=== PATIENT | male | born 1985 | race Caucasian/White ===

== ENCOUNTER 2018-06-04 12:22 | Outpatient (REF) | payer BC, SELFPAY ==
[2018-06-04 19:30] LABS: Cholesterol 191 mg/dL (50-200); HDL Cholesterol 32 mg/dL (40-60); LDL CHOLESTEROL 150 mg/dL (<100); Triglyceride 89 mg/dL (30-150)
== END 2018-06-04 12:23 ==
LOC: NCHCN 12:22
PROVIDERS: PCP Physician Assistant Medical; Visit Provider Physician Assistant Medical
DX: Z00.00 Encounter for general adult medical examination without abnormal findings (principal); Z13.220 Encounter for screening for lipoid disorders
CPT/HCPCS: 80061; 83721

== ENCOUNTER 2019-07-02 10:50 | Outpatient (REF) | payer BC, SELFPAY ==
[2019-07-02 18:56] LABS: Anion Gap 7.9 mmol/L (3-11); BUN 10 mg/dL (7-18); CO2 27.1 mmol/L (21.0-32.0); CREATININE 0.87 mg/dL (0.70-1.30); Calcium 8.8 mg/dL (8.5-10.1); Chloride 103 mmol/L (98-107); Glucose 98 mg/dL (70-100); Potassium 4.5 mmol/L (3.5-5.1); Sodium 138 mmol/L (136-145)
== END 2019-07-02 11:10 ==
LOC: NCHCN 10:50
PROVIDERS: PCP Nurse Practitioner Family; Visit Provider Nurse Practitioner Family
DX: M54.89 Other dorsalgia (principal)
CPT/HCPCS: 80048; 87086

== ENCOUNTER 2020-07-16 14:48 | Outpatient (REF) | payer SELFPAY ==
[2020-07-20 17:07] LABS: Patient Race White; SARS-CoV-2 RNA Undetected (Undetected); SARS-CoV-2 Specimen Source Nasopharynx
== END 2020-07-16 15:08 ==
LOC: NCHCN 14:48
PROVIDERS: PCP Nurse Practitioner Family; Visit Provider Physician Assistant
DX: Z20.828 Contact with and (suspected) exposure to other viral communicable diseases (principal)
CPT/HCPCS: U0003

== ENCOUNTER 2020-09-04 14:18 | Outpatient (REF) | payer OTHER, SELFPAY ==
[2020-09-09 02:01] LABS: Patient Race White; SARS-CoV-2 RNA Undetected (Undetected); SARS-CoV-2 Specimen Source Nasal
== END 2020-09-04 14:38 ==
LOC: NCHCN 14:18
PROVIDERS: PCP Nurse Practitioner Family; Visit Provider Physician Assistant
DX: Z20.828 Contact with and (suspected) exposure to other viral communicable diseases (principal)
CPT/HCPCS: U0003

== ENCOUNTER 2020-10-05 20:54 | Outpatient (REF) | payer OTHER, SELFPAY ==
[2020-10-08 21:23] LABS: COVID-19 RT-PCR Result NEGATIVE (Negative)
== END 2020-10-05 21:14 ==
LOC: NCHCN 20:54
PROVIDERS: PCP Nurse Practitioner Family; Visit Provider Internal Medicine
DX: Z20.828 Contact with and (suspected) exposure to other viral communicable diseases (principal)
CPT/HCPCS: U0003

== ENCOUNTER 2021-08-17 08:52 | Outpatient (REF) | payer OTHER, SELFPAY ==
[2021-08-19 16:39] LABS: COVID-19 RT-PCR UVMMC Result Negative (Negative)
== END 2021-08-17 08:53 | disposition home or self-care (01) ==
LOC: NCHCN 08:52
PROVIDERS: PCP Nurse Practitioner Family; Visit Provider Nurse Practitioner Family
DX: Z20.822 Contact with and (suspected) exposure to COVID-19 (principal); J02.9 Acute pharyngitis, unspecified
CPT/HCPCS: U0003

== ENCOUNTER 2023-02-24 15:37 | Outpatient (REF) | payer OTHER, SELFPAY ==
[2023-02-24 18:21] LABS: Anion Gap 6.5 mmol/L (3-11); BUN 10 mg/dL (7-18); CO2 28.5 mmol/L (21.0-32.0); CREATININE 0.8 mg/dL (0.70-1.30); Calcium 8.7 mg/dL (8.5-10.1); Calculated LDL 196 mg/dL (<100); Chloride 105 mmol/L (98-107); Cholesterol 257 mg/dL (<200); Estimated GFR 118.36 (mL/min/1.73m2); Glucose 89 mg/dL (74-106); HDL Cholesterol 38 mg/dL (40-60); Potassium 4.3 mmol/L (3.5-5.1); Sodium 140 mmol/L (136-145); Triglyceride 115 mg/dL (<150)
== END 2023-02-24 15:38 | disposition home or self-care (01) ==
LOC: NCHCN 15:37
PROVIDERS: PCP Nurse Practitioner Family; Visit Provider Internal Medicine
DX: R19.7 Diarrhea, unspecified (principal); F90.8 Attention-deficit hyperactivity disorder, other type; F41.8 Other specified anxiety disorders; E66.8 Other obesity
CPT/HCPCS: 80048; 80061

== ENCOUNTER 2025-03-27 16:28 | Outpatient (REF) | payer OTHER, SELFPAY ==
[2025-03-27 18:40] LABS: Anion Gap 5.4 mmol/L (3-11); BUN 9 mg/dL (7-18); CO2 29.6 mmol/L (21.0-32.0); CREATININE 0.9 mg/dL (0.70-1.30); Calcium 9.2 mg/dL (8.5-10.1); Calculated LDL 202 mg/dL (<100); Chloride 103 mmol/L (98-107); Cholesterol 274 mg/dL (<200); Estimated GFR 112.81 (mL/min/1.73m2); Glucose 87 mg/dL (74-106); HDL Cholesterol 49 mg/dL (>or=40); Potassium 4.3 mmol/L (3.5-5.1); Sodium 138 mmol/L (136-145); Triglyceride 117 mg/dL (<150)
== END 2025-03-27 16:29 | disposition home or self-care (01) ==
LOC: NCHCN 16:28
PROVIDERS: PCP Nurse Practitioner Family; Visit Provider Internal Medicine
DX: E66.9 Obesity, unspecified (principal)
CPT/HCPCS: 80048; 80061